=== PATIENT | male | born 1995 | race Caucasian/White ===

== ENCOUNTER 2017-09-18 00:56 | Emergency (ER) | payer BC, OTHER ==
[~2017-09-18] VITALS: Ht 185.4 cm; Wt 74.5 kg
[2017-09-18 01:02] VITALS: TEMP 36.8; Ht 185.4 cm; Wt 74.5 kg
--- NOTE | 2017-09-18 01:09 | EMERGENCY ROOM VISIT NOTE ---
History Report prepared by Yola: David Ellison Under the Supervision of: Dr. Abigail Castillo D.O. First contact with patient: 00:57 Chief Complaint: ALCOHOL OVERDOSE Stated Complaint: ALCOHOL History of Present Illness The patient is a 21 year old male who presents to the Emergency Room with complaints of an episode of an alcohol overdose occurring tonight. Per EMS, the patient was found wandering around [facility] by himself. The patient states that he was on a bar tour tonight and went to four bars. He notes that he had seven drinks tonight. He denies any trauma and abdominal pain. He reports that he has no chronic health problems. HPI limited secondary to alcohol intoxication. Source of History: patient, EMS History Limited By: intoxication (alcohol) Onset: tonight Position: other (global) Quality: other (alcohol intoxication) Timing: other (an episode) Associated Symptoms: No abdominal pain Note: The patient denies any trauma. Review of Systems ROS limited secondary to alcohol intoxication. Past Medical & Surgical Medical Problems: (1) No chronic problems Family History No pertinent family history stated. Social History Alcohol Use: heavy Marital Status: single Housing Status: lives with roommate Occupation Status: [employer] student Current/Historical Medications No Active Prescriptions or Reported Meds Allergies Coded Allergies: No Known Allergies (Unverified , 09/18/17) Physical Exam Vital Signs Date Time Temp Pulse Resp B/P (MAP) Pulse Ox O2 Delivery O2 Flow Rate FiO2 09/18/17 07:00 87 14 121/59 100 09/18/17 06:00 75 14 121/59 99 Room Air 09/18/17 05:09 75 09/18/17 05:00 76 14 99/44 95 Room Air 09/18/17 04:00 79 13 106/43 94 Room Air 09/18/17 03:00 85 15 108/48 95 Room Air 09/18/17 02:06 91 13 156/89 99 Room Air 09/18/17 01:02 36.8 110 13 142/94 100 Room Air 09/18/17 01:00 110 Physical Exam General: Smells of alcohol. HEENT: Head - normocephalic and atraumatic, pupils are 6mm and sluggishly reactive to light. Extraocular eye muscles are intact, and sclera are anicteric. Nose - moist nasal mucosa without discharge. Mouth - moist buccal mucosa. Oropharynx is nonerythematous and there is no tonsillar exudate or edema noted. Neck: Supple; no JVD, nuchal rigidity, cervical lymphadenopathy. Heart: Regular rhythm and tachycardic. There is a normal S1 and S2 with no murmurs, clicks, or gallops appreciated. Lungs: Clear to auscultation bilaterally with no wheezes, rales, or rhonchi. Abdomen: Soft, completely nontender, nondistended, with good bowel sounds. There are no palpable pulsatile masses or hepatosplenomegaly. There is no guarding, rigidity, or rebound noted. Extremities: No evidence of cyanosis, clubbing, or edema. There are easily palpable peripheral pulses. Skin: warm and dry with good turgor and no rashes. Medical Decision & Procedures Laboratory Results 09/18/17 01:02 Test 09/18/17 01:02 Anion Gap 5.0 mmol/L (3-11) Est Creatinine Clear Calc Drug Dose 109.9 ml/min Estimated GFR () 108.3 Estimated GFR (Non- 93.4 BUN/Creatinine Ratio 9.3 (10-20) Calcium Level 8.4 mg/dl (8.5-10.1) Ethyl Alcohol mg/dL 256.0 mg/dl (0-3) Laboratory results per my review. ED Course 0110: Past medical records reviewed. The patient was evaluated in room A11. A complete history and physical exam was performed. The patient was placed in the prone position to avoid aspiration. They were observed on the monitoring specialist and pulse oximeter. Labs were drawn as above. the patient tried to call his mother's cell phone while I was in the room. He was sent to [employer]. 0201: I reevaluated and updated the patient. He is trying to call his mother. He notes that the number that he tried to call earlier was his father's. I told him his alcohol level. 0340: I reevaluated the patient. He is sound asleep and hemodynamically stable. 0613: I rechecked the patient. He has no recollection of calling his parents and would not like us to call his parents now. He states that he is graduating on Thursday. 0648: Upon reevaluation, the patient is stable. I discussed findings and results with him. He verbalized agreement of the treatment plan. The patient was discharged home. Medical Decision The patient is a 21 year old male who presents to the Emergency Room with complaints of an episode of an alcohol overdose occurring tonight. Differential diagnoses include: alcohol overdose, drug intoxication, hypoglycemia, and head injury. Lab Results Show: Alcohol 256. Normal renal function. Glucose 124. The patient was brought to the emergency department after consuming too much alcohol. There were no obvious signs of trauma or complaints of pain. They were observed closely throughout the night and remained stable while here in the ER. The patient was allowed time to sober up prior to discharge. I had a conversation with the patient about the hazards of such excessive alcohol use. The patient was easily able to communicate with. He sobered up and was ready for discharge. Blood Pressure Screening Patient's blood pressure: Normal blood pressure Blood pressure disposition: Did not require urgent referral Impression Primary Impression: Alcohol overdose Scribe Attestation The scribe's documentation has been prepared under my direction and personally reviewed by me in its entirety. I confirm that the note above accurately reflects all work, treatment, procedures, and medical decision making performed by me. Departure Information Dispostion Home / Self-Care Prescriptions No Active Prescriptions or Reported Meds Referrals No Doctor, Assigned (PCP) Forms HOME CARE DOCUMENTATION FORM, IMPORTANT VISIT INFORMATION Patient Instructions My [facility] Additional Instructions Avoid such excessive alcohol use in the future. Tylenol 650 mg every 6 hours for headache. Drink plenty of fluids and take a bland diet today. Return to the emergency department for worsening symptoms or any medical concerns. Problem Qualifiers Primary Impression: Alcohol overdose Encounter type: initial encounter Injury intent: accidental or unintentional Qualified Codes: T51.91XA - Toxic effect of unspecified alcohol , accidental (unintentional), initial encounter
[2017-09-18 01:30] LABS: CALCIUM 8.4 mg/dl (8.5-10.1); CREATININE 1.12 mg/dl (0.60-1.40)
[2017-09-18 07:00] VITALS: BP 121/59; PULSE 87; O2SAT 100
== END 2017-09-18 07:01 | disposition home or self-care (01) ==
LOC: EDBD 00:56 → C.EDA 00:57
DX: F10.129 Alcohol abuse with intoxication, unspecified (principal); Y90.8 Blood alcohol level of 240 mg/100 ml or more